=== PATIENT | male | born 1980 | race Caucasian/White ===

== ENCOUNTER 2018-05-24 21:16 | Emergency (ER) | payer MEDICAID ==
[2018-05-24] MEDS ORDERED: CHLORDIAZEPOXIDE 25MG PREPK#6 BTL TAKEHOME ONE (22:13)
--- NOTE | 2018-05-24 22:13 | EDPHY ---
H & P Time Seen by Provider: 05/24/18 21:51 HPI/ROS: HPI Alcohol abuse. Wants detox. 37-year-old male on foot. He is currently homeless. He has all of his belongings with him. He has a history of alcohol abuse. He presents the emergency department stating that he feels he is withdrawing from alcohol. He states that his last drink was sometime this afternoon. He reports that he drinks heavily daily. No other complaints. ROS: Constitutional: No fever, no chills. No weakness. Respiratory: No cough. No shortness of breath. Cardiac: No chest pain, no palpitations. Gastrointestinal: No abdominal pain, no vomiting, no diarrhea. Genitourinary: No hematuria. No dysuria or increased frequency with urination. Musculoskeletal: No back pain. No neck pain. No myalgias or arthralgias. Neurological: No headache. No focal weakness or altered sensation. Past medical history: Alcohol abuse, PTSD, asthma. Social history: Smoker. Homeless. Here by himself. As above. Physical Exam: General Appearance: Sleepy but arousable to voice. He is not in distress. This patient is responding to questions appropriately and in full sentences. This patient appears well-hydrated and well-nourished. Head: Normocephalic atraumatic. Eyes: Pupils equal and round no pallor or injection. No lid edema, erythema or injection. Respiratory: There are no retractions, lungs are clear to auscultation with good air movement bilaterally. Cardiovascular: Regular rate and rhythm. No murmur. Gastrointestinal: Abdomen is soft and nontender, no masses, bowel sounds normal. No focal tenderness at McBurney's point. No Langley sign. Neurological: Motor sensory function is grossly intact. Cranial nerves are normal. Gait is normal. Mild resting tremor. Skin: Warm and dry, no rashes. Musculoskeletal: Neck is supple and nontender. Extremities are symmetrical. All joints range without pain or impingement. Psychiatric: No agitation. No depression. Database: EKG: Imaging: Procedures: Emergency department course: Triage vital signs reviewed and are unremarkable. I explained to the patient that we do not have a detox program here. He agrees to be transferred to the [facility] with a Librium prepack. Follow-up and return to emergency department precautions reviewed with him. All of his questions were answered. He was [facility] in good condition with a sober ride. Differential Diagnosis: The differential diagnosis on this patient includes but is not limited to alcohol abuse, mild alcohol withdrawal. Delirium tremens unlikely, alcohol withdrawal seizure unlikely. This represents a partial list of diagnoses considered. These considerations are based on history, physical exam, past history, reassessment and diagnostic testing. Smoking Status: Current every day smoker Constitutional: Initial Vital Signs Temperature (C) 36.9 C 05/24/18 21:22 Heart Rate 95 05/24/18 21:22 Respiratory Rate 16 05/24/18 21:22 Blood Pressure 143/91 H 05/24/18 21:22 O2 Sat (%) 94 05/24/18 21:22 O2 Delivery Mode Room Air Allergies/Adverse Reactions: seasonal Allergy (Uncoded 05/25/18 08:07) Home Medications: Medication Instructions Recorded NK [No Known Home Meds] 05/24/18 Medical Decision Making - Data Points Medications Given: Discontinued Medications Chlordiazepoxide (Librium 25 Mg Prepack#6) [facility] Stop: 05/24/18 22:14 Last Admin: 05/24/18 22:23 Dose: 1 btl Departure - Departure Disposition: Home, Routine, Self-Care Clinical Impression: Alcohol dependence Condition: Good Instructions: Chlordiazepoxide (By mouth), Abuse of Alcohol (ED) Additional Instructions: Read and follow provided instructions. Follow-up with your primary care physician at [facility] in 1-2 days for re -evaluation and referral to a detox program. Librium medication will be given to you by the [facility] staff for alcohol withdrawal symptoms. Return to the emergency department for worsening symptoms, seizure or other serious concerns. Referrals: [facility] Detox 24 Hours [Outside] - As per Instructions
[2018-05-24 22:25] VITALS: BP 136/88
== END 2018-05-24 22:41 | disposition home or self-care (01) ==
DX: F10.20 Alcohol dependence, uncomplicated (principal)

== ENCOUNTER 2018-05-25 08:06 | Emergency (ER) | payer MEDICAID | END 2018-05-25 09:27 | disposition home or self-care (01) ==

== ENCOUNTER 2018-06-30 18:16 | Emergency (ER) | payer MEDICAID, OTHER ==
[2018-06-30] MEDS ORDERED: ONDANSETRON DISINTEGRATING 4 MG TAB PO ONE (18:51)
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
[2018-06-30] MEDS ORDERED: CHLORDIAZEPOXIDE 25MG PREPK#6 BTL TAKEHOME ONE (20:25)
[2018-06-30] MEDS ORDERED: ALBUTEROL INH PREPACK MDI TAKEHOME ONE (20:25)
[2018-06-30 20:53] VITALS: BP 109/64
== END 2018-06-30 20:52 | disposition home or self-care (01) ==
DX: J40 Bronchitis, not specified as acute or chronic (principal); F10.10 Alcohol abuse, uncomplicated; Z59.0 Homelessness

== ENCOUNTER 2018-08-22 13:28 | Emergency (ER) | payer MEDICAID ==
[2018-08-22] MEDS ORDERED: NS 1,000 ML IV ONE (13:51)
[2018-08-22] MEDS ORDERED: ONDANSETRON 4 MG/2 ML VIAL IVP ONE (13:51)
--- NOTE | 2018-08-22 13:51 | EDPHY ---
H & P Stated Complaint: sent from [facility] for vomiting, 48 hrs, RUQ and LLQ pain Time Seen by Provider: 08/22/18 13:36 HPI/ROS: CHIEF COMPLAINT: Vomiting HISTORY OF PRESENT ILLNESS: This is a 38-year-old male with history of alcohol dependence who was referred to the [facility] been [facility] for the past 3 days, undergoing withdrawal from alcohol. He tells me for the that for the last day and a half he has had persistent nausea and vomiting. He states that the vomitus is now bilious. He has not seen any obvious blood. He also reports right upper quadrant pain and some pain in his left lower abdomen just above the groin. His last drink was on , 3 days ago. He does not experience withdrawal seizures but does develop tremors, blurred vision, headache, nausea. He states that he is motivated to remain in recovery. He is hoping for long-term treatment placement. It is his understanding that he is to return [facility] on Friday to discuss the options for long-term treatment. REVIEW OF SYSTEMS: A ten system review of systems was performed and is negative with the exception of the items mentioned in the HPI. Past medical history: 1. Alcohol dependence 2. Tobacco abuse 3. Reactive airway disease 4. PTSD 5. Hypertension Social history: He is currently undomiciled. History of alcohol and tobacco abuse. No illicits. He does use marijuana sometimes. General Appearance: Alert. Vital signs reviewed. Blood pressure 137/89, heart rate 117. Vital signs otherwise normal. Slightly disheveled. He is not tremulous. Eyes: Pupils equal and round, mild bilateral conjunctival injection, no discharge. Anicteric. ENT, Mouth: Mucous membranes are moist, no oropharyngeal erythema or edema. Neck: No lymphadenopathy, supple. Respiratory: Lungs are clear to auscultation; no wheezes, rales, or rhonchi. Cardiovascular: Mildly tachycardic; no murmur, rub, or gallop. Gastrointestinal: Abdomen is soft with right upper quadrant tenderness, no guarding, is also very mild tenderness just above the left groin (no palpable mass) no masses or organomegaly, bowel sounds normal. Skin: Warm and dry, no rashes on exposed skin, normal color. Back: Nontender to palpation over the thoracolumbar spine. No CVAT. Extremities: No lower extremity edema, no calf tenderness or swelling. Neurological: Alert and oriented. Moving all four extremities easily and equally. Psychiatric: Normal affect. - Personal History Current Tetanus/Diphtheria Vaccine: Yes Current Tetanus Diphtheria and Acellular Pertussis (TDAP): Yes Tetanus Vaccine Date: 2015 - Medical/Surgical History Hx Asthma: Yes Hx Chronic Respiratory Disease: No Hx Diabetes: No Hx Cardiac Disease: No Hx Renal Disease: Yes Hx Cirrhosis: No Hx Alcoholism: Yes Hx HIV/AIDS: No Hx Splenectomy or Spleen Trauma: No Other PMH: etoh, ptsd, asthma - Social History Smoking Status: Current every day smoker Constitutional: Initial Vital Signs Temperature (C) 36.7 C 08/22/18 13:31 Heart Rate 117 H 08/22/18 13:31 Respiratory Rate 14 08/22/18 13:31 Blood Pressure 137/89 H 08/22/18 13:31 O2 Sat (%) 97 08/22/18 13:31 O2 Delivery Mode Room Air Allergies/Adverse Reactions: seasonal Allergy (Uncoded 05/25/18 08:07) Home Medications: Medication Instructions Recorded Albuterol 06/30/18 Propranolol HCl 06/30/18 Medical Decision Making ED Course/Re-evaluation: Day and half of nausea vomiting in known alcoholic who has just undergone alcohol withdrawal. In the emergency department he is given 1 L IV normal saline and Zofran 4 mg IV times two doses. Blood work to assess gallbladder/ pancreas/liver. Patient serially evaluated. He continues with mild upper abdominal tenderness, no guarding. No vomiting while in ED. Blood work reviewed. Sodium is low at 130. Liver functions are elevated, lipase wnl. I do not think that he has pancreatitis. He is not icteric and I doubt alcoholic hepatitis. I think that his vomiting is secondary to withdrawal. No diarrhea and I do not suspect gastroenteritis. SBO unlikely in this setting. At 3:00 p.m. the patient is trying p.o.. He tolerated medardo jonathan and then crackers. Tachycardia resolved. He feels well enough to leave the ED. He is given Zofran ODT for symptom control. He understands the danger signs that should prompt him to be re-evaluated. - Data Points Laboratory Results: Laboratory Results 08/22/18 13:40 08/22/18 13:40 Medications Given: Discontinued Medications Sodium Chloride (Ns) 1,000 mls @ 0 mls/hr IV EDNOW ONE; Wide Open PRN Reason: Protocol Stop: 08/22/18 13:52 Last Admin: 08/22/18 13:57 Dose: 1,000 mls Ondansetron HCl (Zofran) 4 mg IVP EDNOW ONE Stop: 08/22/18 13:52 Last Admin: 08/22/18 13:57 Dose: 4 mg Departure - Departure Disposition: Home, Routine, Self-Care Clinical Impression: Elevated LFTs Abdominal pain Qualifiers: Abdominal location: epigastric Qualified Code(s): R10.13 - Epigastric pain Vomiting Qualifiers: Vomiting type: unspecified Vomiting Intractability: non-intractable Nausea presence: with nausea Qualified Code(s): R11.2 - Nausea with vomiting, unspecified Condition: Good Instructions: Acute Nausea and Vomiting (ED), Abdominal Pain (ED) Additional Instructions: I am prescribing some anti nausea medicine for you to use if needed. I am referring you back to [facility] for continued care as needed. I a.m. Hopeful that you can continue your sobriety Referrals: [facility] [Outside] - As per Instructions AA Hotline [Outside] - As per Instructions [facility] 24 Hours [Outside] - As per Instructions
[2018-08-22 13:59] LABS: PLATELET COUNT 218 10^3/uL (150-400)
[2018-08-22] MEDS ORDERED: NICOTINE 21 MG/24 HR PATCH TD ONE (15:09)
[2018-08-22] MEDS ORDERED: ONDANSETRON 4 MG/2 ML VIAL ONE (15:33)
[2018-08-22] MEDS ORDERED: ONDANSETRON 4MG PREPACK#2 BTL TAKEHOME ONE (17:52)
[2018-08-22 17:56] VITALS: BP 122/78
== END 2018-08-22 17:56 | disposition home or self-care (01) ==
DX: R94.5 Abnormal results of liver function studies (principal); R10.13 Epigastric pain; R11.2 Nausea with vomiting, unspecified; E86.9 Volume depletion, unspecified
CPT/HCPCS: 96374; J2405